=== PATIENT | female | born 1995 | race Caucasian/White ===

== ENCOUNTER 2020-02-08 06:47 | Outpatient (CLI) | payer SELFPAY ==
[2020-02-08 13:09] LABS: BHCG - Serum Negative (NEGATIVE); Pregs Control Background? CLEAR/WHITE (CLR/WHITE); Pregs Control Bar Appear? YES (CONTROL BAR)
[2020-02-09 03:02] LABS: SARS-CoV-2 MS2 Positive; SARS-CoV-2 N Gene Negative; SARS-CoV-2 S Gene Negative; SARS-CoV-2 by NAA Not Detected (NotDetected); SARS-CoV-2 orf1ab Negative
== END 2020-02-08 06:48 | disposition home or self-care (01) ==
LOC: LABBT 06:47
PROVIDERS: ATTEND Plastic Surgery
DX: Z01.812 Encounter for preprocedural laboratory examination (principal); Z20.828 Contact with and (suspected) exposure to other viral communicable diseases
CPT/HCPCS: 84703; 87635; U0003

== ENCOUNTER 2020-02-11 10:02 | Day surgery (SDC) | payer OTHER, SELFPAY ==
[2020-02-09 15:40] VITALS: BMI 27.4
[2020-02-11] MEDS ORDERED: PHENYLEPHRINE-NS 100 MCG/ML 10 ML SYRINGE ONE (10:24)
[2020-02-11] MEDS ORDERED: Ondansetron PF 4 MG/2 ML Vial ONE (10:24)
[2020-02-11] MEDS ORDERED: Rocuronium Bromide 10 MG/ML (10ML VIAL) ONE (10:24)
[2020-02-11] MEDS ORDERED: Lidocaine 1% PF 5 ML VIAL ONE (10:24)
[2020-02-11] MEDS ORDERED: PROPOFOL 200 MG/20 ML VIAL ONE (10:24)
[2020-02-11] MEDS ORDERED: Heparin 5,000 UNITS/ML VIAL ONE (10:43)
[2020-02-11] MEDS ORDERED: HYDROmorphone 0.5 MG/0.5 ML SYRINGE ONE (11:02)
[2020-02-11] MEDS ORDERED: Dexmedetomidine 200 MCG/2 ML VIAL ONE (11:02)
[2020-02-11] MEDS ORDERED: Midazolam HCl 2 mg/2 ml Vial ONE ×2 (11:02→12:04)
[2020-02-11] MEDS ORDERED: Fentanyl 100 MCG/2 ML VIAL ONE ×2 (11:02→11:50)
[2020-02-11] MEDS ORDERED: Bupivacaine 0.25% HCL 30 ML VIAL ONE (11:44)
[2020-02-11] MEDS ORDERED: Gentamicin 80 MG/2 ML VIAL ONE (11:44)
[2020-02-11] MEDS ORDERED: Dexamethasone 20 MG/5 ML VIAL ONE (11:44)
[2020-02-11] MEDS ORDERED: EPINEPHrine 1 MG/ML AMP ONE (11:44)
[2020-02-11] MEDS ORDERED: Famotidine/PF 20 mg/2ml Vial ONE (11:50)
[2020-02-11] MEDS ORDERED: HYDROmorphone 2 MG/ML VIAL ONE (12:04)
[2020-02-11] MEDS ORDERED: SUGAMMADEX SODIUM 200 MG/2 ML VIAL ONE (13:22)
[2020-02-11] MEDS ORDERED: Esmolol 100 MG/10 ML VIAL ONE (15:57)
[2020-02-11] MEDS ORDERED: Metoprolol Tartrate 5 MG/5 ML VIAL ONE (16:32)
--- NOTE | 2020-02-12 08:21 | OP ---
DATE OF PROCEDURE: 02/11/2020 PREOPERATIVE DIAGNOSIS: Macromastia. POSTOPERATIVE DIAGNOSIS: Macromastia. PROCEDURE PERFORMED: Bilateral breast reduction. PROCEDURE DETAILS: Following induction of adequate anesthesia, the patient was prepped and draped in usual sterile fashion in supine position. Attention was first turned to the larger left breast. The nipple was circumcised around a 42 mm nipple Sizer. A Weiss pattern incisions were made. The inferior pole of the breast was de-epithelialized. Skin flaps were then raised superiorly, medially, and laterally. Dermal glandular units were resected superiorly, medially, and laterally. Sculpting a central pedicle design to protect viability and sensibility. The pedicle was then sutured into place with a series of 2-0 PDS sutures. The field was copiously irrigated and inspected for meticulous hemostasis prior to closure of the inverted T with interrupted 3-0 PDS sutures. The nipple was brought out through a 42 mm nipple defect and similarly inset. Final skin incisions were closed with 3-0 Monocryl suture. A similar procedure was done on each side. The patient tolerated the procedure well. Job ID: [id number]
== END 2020-02-11 17:50 | disposition home or self-care (01) ==
LOC: SDC 10:02
PROVIDERS: ATTEND Plastic Surgery
PROC: 0HBV0ZZ Excision of Bilateral Breast, Open Approach (ICD-10-PCS; principal; 2020-02-11)
DX: N62 Hypertrophy of breast (principal); Z79.899 Other long term (current) drug therapy
CPT/HCPCS: 88305; J0171; J0690; J1100; J1170; J1580; J1644; J2250; J2405; J2704; J3010; J3370; J3490; S0020; S0028